=== PATIENT | male | born 2000 | race Caucasian/White ===

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

== ENCOUNTER 2024-06-21 14:04 | Emergency (ER) | payer MEDICAID, SELFPAY ==
[2024-06-21 14:07] VITALS: BP 147/84; PULSE 84; RESP 20; TEMP 37; O2SAT 98; BMI 27.3
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
[2024-06-21] MEDS: Fluorescein Sodium STRIP 1 STRIP EYE-RIGHT ×2 (16:30→16:37)
[2024-06-21] MEDS: Tetracaine HCl/PF 0.5% Oph Sol 4 ML DROPS 1 DROP EYE-RIGHT (16:30)
[2024-06-21] MEDS: Fluorescein Sodium STRIP 1 STRIP EYE-LEFT (16:30)
[2024-06-21] MEDS: Tetracaine HCl/PF 0.5% Oph Sol 4 ML DROPS 3 DROP EYE-RIGHT (16:37)
[2024-06-21 17:53] VITALS: BP 140/70; PULSE 77; RESP 18; TEMP 37.2; O2SAT 99
[2024-06-21] MEDS: Diphth,Pertus(ACell),Tet Adult 0.5 ML SYRINGE IM (17:58)
[2024-06-21 18:01] VITALS: BP 140/70; PULSE 77; RESP 18; TEMP 37.2; O2SAT 99
== END 2024-06-21 18:02 | disposition home or self-care (01) ==
PROVIDERS: Emergency Provider Emergency Medicine
DX: S05.01XA Injury of conjunctiva and corneal abrasion without foreign body, right eye, initial encounter (principal); H57.11 Ocular pain, right eye; X58.XXXA Exposure to other specified factors, initial encounter; Y93.89 Activity, other specified; Y92.89 Other specified places as the place of occurrence of the external cause; Y99.8 Other external cause status; Z23 Encounter for immunization
CPT/HCPCS: 90471; 90715; 99283; 99284